=== PATIENT | male | born 1960 | race Caucasian/White ===

== ENCOUNTER 2016-11-12 07:35 | Emergency (ER) | payer MEDICARE ==
[2015-08-08 16:17] VITALS: BMI 24.4
[~2016-11-12 07:35] MED LIST: ARTANE2 MG PO; CLOZAPINE200 MG PO; CLOZARIL100 MG PO; COLACE100 MG PO; COREG 3.1253.125 MG PO; COREG6.25 MG PO; GLUCOPHAGE500 MG PO; MOBIC7.5 MG PO; SEROQUEL200 MG PO; SEROQUEL400 MG PO; TRICOR145 MG PO; ZOCOR20 MG PO
[2016-11-12 08:09] LABS: BASOPHILS 0.1 % (0.0-2.0); EOSINOPHILS 0 % (0-7); HEMATOCRIT 43.4 % (42.0-54.0); HEMOGLOBIN 14.2 g/dL (13.5-17.5); IMMATURE GRANULOCYTES 0.5 % (0-5); LYMPHOCYTES 12.4 % (15-50); MCH 32.3 pg (26.0-34.0); MCHC 32.7 g/dL (31.0-37.0); MCV 98.6 fL (80.0-100.0); MEAN PLATELET VOLUME 9.5 fL (7.4-10.4); MONOCYTES 6.1 % (2-11); NEUTROPHILS 80.9 % (40-80); PLATELET COUNT 249 10x3/uL (130-400); WBC 12.5 10x3/uL (4.8-10.8)
[2016-11-12 08:24] LABS: ALBUMIN 3.5 g/dL (3.4-5.0); ALKALINE PHOSPHATASE 38 U/L (46-116); ALT (SGPT) 20 U/L (10-68); CALC OSMOLALITY 283 mosm/kg (275-300); CALCIUM 9.5 mg/dL (8.5-10.1); CARBON DIOXIDE 24.6 mmol/L (21.0-32.0); CHLORIDE - SERUM 105 mmol/L (98-107); PROTEIN - SERUM 6.8 g/dL (6.4-8.2); SODIUM 140 mmol/L (136-145); UREA NITROGEN 23 mg/dL (7-18); VALPROIC ACID (DEPAKOTE) 43.8 ug/mL (50.0-100.0); eGFR NON AFRICAN AMERICAN 82 mL/min (90-120)
[2016-11-12 08:25] LABS: GLUCOSE 112 mg/dL (74-106)
[2016-11-12 10:37] LABS: UDS - AMPHET NEGATIVE QUAL (NEGATIVE); UDS - BARB NEGATIVE QUAL (NEGATIVE); UDS - BENZO NEGATIVE QUAL (NEGATIVE); UDS - COCAINE NEGATIVE QUAL (NEGATIVE); UDS - METH NEGATIVE QUAL (NEGATIVE); UDS - OPIATE NEGATIVE QUAL (NEGATIVE); UDS - PCP NEGATIVE QUAL (NEGATIVE); UDS - THC NEGATIVE QUAL (NEGATIVE)
== END 2016-11-12 10:41 | disposition home or self-care (01) ==
LOC: D.ER 07:35
PROVIDERS: Emergency Medicine
DX: G40.909 Epilepsy, unspecified, not intractable, without status epilepticus (principal); S06.0X9A Concussion with loss of consciousness of unspecified duration, initial encounter; W19.XXXA Unspecified fall, initial encounter; Y93.89 Activity, other specified; Y92.89 Other specified places as the place of occurrence of the external cause; S01.01XA Laceration without foreign body of scalp, initial encounter; E72.20 Disorder of urea cycle metabolism, unspecified; F20.9 Schizophrenia, unspecified

== ENCOUNTER 2017-03-22 06:52 | Day surgery (SDC) | payer MEDICARE ==
[~2017-03-22] VITALS: Ht 180.3 cm; Wt 86.2 kg
--- NOTE | ~2017-03-22 | OP ---
PATIENT NAME: LIZET MONTOYA MEDICAL RECORD: [id number] :60 LOCATION:[facility] ADMISSION DATE: SURGEON: JUAN JOSE MADRID MD DATE OF OPERATION: 03/22/2017 PREOPERATIVE DIAGNOSIS: Right cheek mass. POSTOPERATIVE DIAGNOSIS: Right cheek mass. PROCEDURE: Excision of right intraoral cheek mass. SURGEON: Juan Jose Madrid MD. ANESTHESIA: General orotracheal. BLOOD LOSS: 1 cc. SPECIMENS: Right cheek mass. COMPLICATIONS: None. DISPOSITION: Recovery stable. DESCRIPTION OF PROCEDURE: He was brought to the operating room and placed in supine position, sedated and intubated by anesthesia. The mouth was clean with Peridex. The right cheek was injected with less than 1 cc of 1% lidocaine with 1:100,000 epinephrine. He was prepped and draped in usual sterile fashion. A 15-blade was used to make a horizontal incision exposing the cheek mass, which was dissected out. This was submucosal, completely mobile, very easy to dissect out with scissors into the fat pad of the cheek without interrupting the mass at all. Clean excision completely excising the mass, very easy to dissect well around it. It was about 1 cm in size, hard, but completely dissected out with normal tissue around it. Bleeding was controlled with cautery, mainly just a little bit along the mucosal edges and then the wound was closed using interrupted 3-0 chromic. He was awakened, extubated, and transported to recovery in good condition. No complications. TRANSINT:[id number] Voice Confirmation ID: [id number] DOCUMENT ID: [id number] JUAN JOSE MADRID MD CC: [id number] DICTATION DATE: 03/22/17 1159 MARSH BUGGY OPERATOR: 03/22/17 1834 [facility] 03/22/17 [facility] [address] [place] [address]
[~2017-03-22 06:52] MED LIST changes: +DEPAKOTE500 MG PO
[2017-03-22 07:33] LABS: HEMATOCRIT 41.6 % (42.0-54.0); HEMOGLOBIN 13.9 g/dL (13.5-17.5); MCH 32.3 pg (26.0-34.0); MCHC 33.4 g/dL (31.0-37.0); MCV 96.7 fL (80.0-100.0); MEAN PLATELET VOLUME 9.4 fL (7.4-10.4); RBC 4.3 10x6/uL (4.20-6.10); RDW 14.8 % (11.5-14.5); WBC 8.8 10x3/uL (4.8-10.8)
[2017-03-22 07:57] LABS: CALC OSMOLALITY 284 mosm/kg (275-300); CALCIUM 8.9 mg/dL (8.5-10.1); CARBON DIOXIDE 26.5 mmol/L (21.0-32.0); CHLORIDE - SERUM 106 mmol/L (98-107); GLUCOSE 107 mg/dL (74-106); POTASSIUM - SERUM 3.8 mmol/L (3.5-5.1); SODIUM 142 mmol/L (136-145); UREA NITROGEN 19 mg/dL (7-18); eGFR NON AFRICAN AMERICAN 82 mL/min (90-120)
[2017-03-22 09:50] VITALS: BP 125/81; Ht 180.3 cm; Wt 86.2 kg
--- NOTE | 2017-03-22 13:50 | NUR ---
LEFT AC PIV DC'D WITH TIP INTACT, PATIENT WALKING AROUND ROOM WITHOUT DIZZINESS OR UNSTEADINESS, PATIENT DRESSING IN PERSONAL CLOTHING. AWAITING TRANSPORTATION FOR DISCHARGE
[2017-03-22] MEDS ORDERED: AUGMENTIN 875-11 TAB PO (14:04)
[2017-03-22] MEDS ORDERED: PERIDEX480 ML MM (14:05)
--- NOTE | 2017-03-22 15:54 | HP ---
PATIENT: LIZET MONTOYA MEDICAL RECORD: [id number] ACCOUNT: [id number] LOCATION:[facility] : 60 ADMISSION DATE: 03/22/17 HISTORY AND PHYSICAL EXAMINATION HISTORY OF PRESENT ILLNESS: Lizet Montoya was sent over by Dr. Liu. He is a 56-year-old male with a lump inside of his right cheek. He is a smoker. He is being admitted for excision of that right oral cavity masses. PAST MEDICAL HISTORY: Includes diabetes, seizure disorder. CURRENT MEDICATIONS: Include clozapine, Seroquel, trihexyphenidyl, divalproex, carvedilol, metformin, Mobic, simvastatin, TriCor. ALLERGIES: Duloxetine. PHYSICAL EXAMINATION: GENERAL: He is healthy-appearing, he has got a good voice. FACE: Normal, symmetric, no lesions. EYES: Sclerae and conjunctivae are normal. EARS: Canals and TMs are normal. NOSE: No mass, polyps or drainage. ORAL CAVITY, OROPHARYNX: He has a palpable mass just inside his right cheek, couple of centimeters behind his right oral commissure It is submucosal. It is mobile, but it is rock hard. No other lesions or mass are noticed. NECK: No masses, no adenopathy. CHEST: Clear. CARDIOVASCULAR: Regular rate and rhythm, no murmur. EXTREMITIES: Normal. IMPRESSION: Hard submucosal mass, right oral cavity and a smoker. PLAN: Excision of that mass. TRANSINT:[id number] Voice Confirmation ID: [id number] DOCUMENT ID: [id number] NICOLETTE RUFFIN MD at 1554 CC: [id number] DICTATION DATE: 03/18/17 1532 DEGREE CLERK: 03/18/17 1750 [facility] 03/22/17 [id number] [place] [address]
== END 2017-03-22 14:20 | disposition home or self-care (01) ==
LOC: D.OPS 06:52 → D.PAN 09:20 → D.OPS 09:45 → D.PAN 09:45 → D.OPS 10:45
PROVIDERS: Anesthesiology
DX: R22.0 Localized swelling, mass and lump, head (principal); E11.9 Type 2 diabetes mellitus without complications; K13.79 Other lesions of oral mucosa; F17.200 Nicotine dependence, unspecified, uncomplicated; G40.909 Epilepsy, unspecified, not intractable, without status epilepticus; Z01.812 Encounter for preprocedural laboratory examination

== ENCOUNTER 2019-11-27 08:50 | Emergency (ER) | payer MEDICARE ==
[~2019-11-27] VITALS: Ht 180.3 cm; Wt 77.3 kg
[~2019-11-27 08:50] MED LIST changes: +AUGMENTIN 875-11 TAB PO; +PERIDEX480 ML MM
[2019-11-27 08:53] VITALS: Ht 180.3 cm; Wt 77.3 kg
[2019-11-27 09:55] VITALS: BP 143/74
== END 2019-11-27 09:58 | disposition left against medical advice (07) ==
LOC: D.ER 08:50
DX: G40.909 Epilepsy, unspecified, not intractable, without status epilepticus (principal); W01.0XXA Fall on same level from slipping, tripping and stumbling without subsequent striking against object, initial encounter; Y93.9 Activity, unspecified; Y92.9 Unspecified place or not applicable; E11.9 Type 2 diabetes mellitus without complications; Z79.84 Long term (current) use of oral hypoglycemic drugs